=== PATIENT | female | born 1945 | race Caucasian/White ===

== ENCOUNTER → 2016-11-16 | Outpatient (CLI) | payer OTHER | LOC: ULTRA 12:57 | DX: R20.9 Unspecified disturbances of skin sensation (principal) ==

== ENCOUNTER → 2016-11-27 | Outpatient (CLI) | payer OTHER ==
[2016-11-27 09:19] LABS: CREATININE 0.8 mg/dL (0.6-1.0)
== END ==
LOC: CAT 07:58
PROVIDERS: Nurse Practitioner
DX: I73.9 Peripheral vascular disease, unspecified (principal); I77.1 Stricture of artery; K57.90 Diverticulosis of intestine, part unspecified, without perforation or abscess without bleeding

== ENCOUNTER → 2019-02-21 | Outpatient (CLI) | payer OTHER | LOC: CAT 07:44 | DX: I71.4 Abdominal aortic aneurysm, without rupture (principal); I73.9 Peripheral vascular disease, unspecified; N28.89 Other specified disorders of kidney and ureter; E78.5 Hyperlipidemia, unspecified; I10 Essential (primary) hypertension; K76.9 Liver disease, unspecified; N28.1 Cyst of kidney, acquired; K57.30 Diverticulosis of large intestine without perforation or abscess without bleeding ==

== ENCOUNTER 2019-03-16 12:00 | Observation (INO) | payer OTHER ==
[2019-03-16] VITALS (8 sets, daily range): BP systolic 114–152; BP diastolic 57–75
[~2019-03-16] VITALS: Ht 167.6 cm; Wt 69.9 kg
[2019-03-16 13:00] LABS: HEMATOCRIT 38.7 % (37.0-47.0); HEMOGLOBIN 13.1 gm/dL (12.0-15.0); MCH 32.6 pg (26.0-34.0); MCHC 33.8 g/dL (28.0-37.0); MCV 96.5 fL (80.0-100.0); RBC 4.01 mil/uL (4.20-5.00); RDW 13.3 % (10.5-14.5); WBC 5.7 thou/uL (4.0-11.0)
[2019-03-16 13:10] LABS: POTASSIUM 4.2 mmol/L (3.5-5.1)
--- NOTE | 2019-03-16 17:45 | NUR ---
PT CARE ASSUMED APPROX 1640 FROM [facility]. PT S/P STENT TO LLE AND CARDIAC CATH. [employer] STAFF HAD ORIGINALLY REPORTED TO CONSULT DR CARROLL FOR EVAL BUT SENDING RN SAID SHE WASN'T TOLD THIS AND FAMILY CONFIRMED THAT HE WAS GIVEN INFO AND TOLD THAT DR CARROLL'S OFFICE WOULD BE FOLLOWING UP WITH THE PT AFTER DISCHARGE. POST CATH VSS. PT DENIES PAIN AND SOA. GAIT UNASSESSED AT THIS TIME DUE TO POST PROCEDURE BEDREST. WILL ASSESS GAIT AFTER. RIGHT GROIN SITE C/D/I. NO DISTRESS NOTED.
[2019-03-17 00:50] VITALS: BP 148/64
[2019-03-17 04:55] VITALS: BP 122/50
--- NOTE | 2019-03-17 05:52 | NUR ---
[facility] 1900. PT/VITALS STABLE. DENIES ANY PAIN. UP AD FLYNN. RIGHT GROIN SITE CDI. ADEQUATE REST NOTED THROUGH NIGHT. SR ON MONITOR. ASSESSMENT CHARTED. PROGRESSING WELL WITH POC. PLAN IS POSSIBLE DISCHARGE TODAY AFTER ECHO DONE. PT WILL NEED TO SET APPT WITH DR CARROLL FOR POSSIBLE AAA SURGERY
[2019-03-17 06:08] LABS: HEMATOCRIT 35.3 % (37.0-47.0); HEMOGLOBIN 11.9 gm/dL (12.0-15.0); MCH 32.9 pg (26.0-34.0); MCHC 33.8 g/dL (28.0-37.0); MCV 97.3 fL (80.0-100.0); RBC 3.63 mil/uL (4.20-5.00); RDW 13.6 % (10.5-14.5); WBC 6.2 thou/uL (4.0-11.0)
[2019-03-17 06:12] LABS: CALCIUM 8.6 mg/dL (8.5-10.1); CREATININE 0.9 mg/dL (0.6-1.0); POTASSIUM 4.1 mmol/L (3.5-5.1)
--- NOTE | 2019-03-17 08:14 | EKG ---
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: FORD : 1945 Requested By: Beck Beck Order Number: [id number] MD: Neto Giles Measurements Intervals [place] Rate: 68 P: 46 MD: 135 QRS: 61 QRSD: 78 T: 50 QT: 418 QTc: 445 Interpretive Statements Ectopic atrial rhythm with occasional atrial premature complexes No previous ECG available for comparison Electronically Signed On 03-17-2019 8:14:46 CDT by Neto Giles [email or web address] <ELECTRONICALLY SIGNED> By: Neto Giles MD, [facility] 03/17/19 0814 0751 0751 Neto Giles MD, FACC /EPI
[2019-03-17] MEDS ORDERED: TRI-BUFFERED A325 M1 PO (08:30)
[2019-03-17] MEDS ORDERED: NORVASC5 MG PO (08:30)
[2019-03-17] MEDS ORDERED: LIPITOR40 MG PO (08:30)
[2019-03-17] MEDS ORDERED: CLOPIDOGREL75 MG PO (08:30)
--- NOTE | 2019-03-17 10:49 | 2DMMODE ---
[facility] [address] [place] [address] 2 D/M-MODE ECHOCARDIOGRAM Name: LEIGHTON HERNANDEZ Room #: 215-P [facility] IN ..#: [id number] Admission: 03/16/19 Attend Phys: Juan Rashid, Discharge: Date of : 49 Report #: [id number] THIS REPORT FOR: //name// APPROVED REPORT Study performed: 03/17/2019 09:07:44 EXAM: Comprehensive 2D, Doppler, and color-flow Echocardiogram Patient Location: Bedside Room #: [facility] Status: routine BSA: 1.79 HR: 63 bpm Rhythm: NSR Other Information Study Quality: Adequate Indications COPD CAD Hypertension/HDD 2D Dimensions RVDd: 29.22 mm IVSd: 12.86 (7-11mm) LVOT Diam: 18.17 (18-24mm) LVDd: 40.97 mm PWd: 12.71 (7-11mm) LVDs: 28.65 (25-40mm) Aortic Root: 29.23 mm IVC: 9.00 mm Volumes Left Atrial Volume (Systole) Single Plane 4CH: 50.32 mL Single Plane 2CH: 37.38 mL LA ESV Index: 26.00 mL/m2 Aortic Valve AoV Peak Jose.: 1.75 m/s AO Peak Gr.: 12.24 mmHg LVOT Max P.24 mmHg LVOT Max V: 1.25 m/s CONNOR Vmax: 1.85 cm2 Mitral Valve E/A Ratio: 1.0 [facility] [place] [address] 2 D/M-MODE ECHOCARDIOGRAM Name: LEIGHTON HERNANDEZ Room #: 215-P [facility] IN ..#: [id number] Admission: 03/16/19 Attend Phys: Juan Rashid, Discharge: Date of : 49 Report #: [id number] MV Decel. Time: 280.16 ms MV E Max Jose.: 0.97 m/s MV A Jose.: 0.97 m/s MV PHT: 81.25 ms IVRT: 89.97 ms Pulmonary Valve PV Peak Jose.: 0.92 m/s PV Peak Gr.: 3.42 mmHg Pulmonary Vein P Vein S: 0.78 m/s P Vein A: 0.35 m/s P Vein D: 0.46 m/s P Vein A Dur.: 138.4 msec P Vein S/D Ratio: 1.70 Tricuspid Valve TR Peak Jose.: 2.49 m/s RAP Estimate: 5.00 mmHg TR Peak Gr.: 24.78 mmHg PA Pressure: 30.00 mmHg Left Ventricle The left ventricle is normal size. There is normal LV segmental wall motion. Mild concentric left ventricular hypertrophy. The left ventricular systolic function is normal. The left ventricular ejection fraction is within the normal range. LVEF is 60-65%. Moderate diastolic dysfunction is present (pseudonormal filling). Right Ventricle The right ventricle is normal size. The right ventricular systolic function is normal. Atria The left atrium size is normal. The right atrium size is normal. Aortic Valve Aortic valve is mildly calcified. No aortic regurgitation is present. There is no aortic valvular stenosis. Mitral Valve The mitral valve is normal in structure. Mild mitral regurgitation. No evidence of mitral valve stenosis. Tricuspid Valve The tricuspid valve is normal in structure. Trace tricuspid regurgitation. PAP is estimated at 30 mmHg. [facility] [place] [address] 2 D/M-MODE ECHOCARDIOGRAM Name: LEIGHTON HERNANDEZ Room #: 215-P [facility] IN M.R.#: [id number] Admission: 03/16/19 Attend Phys: Juan Rashid, Discharge: Date of : 49 Report #: [id number] Pulmonic Valve The pulmonary valve is normal in structure. Trace pulmonic regurgitation. Great Vessels The aortic root is normal in size. IVC is normal in size and collapses >50% with inspiration. Pericardium There is no pericardial effusion. <Conclusion> The left ventricle is normal size. LVEF is 60-65%. Aortic valve is mildly calcified. The mitral valve is normal in structure. Mild mitral regurgitation. The tricuspid valve is normal in structure. Trace tricuspid regurgitation. PAP is estimated at 30 mmHg. The pulmonary valve is normal in structure. Trace pulmonic regurgitation. There is no pericardial effusion. <ELECTRONICALLY SIGNED> By: Nikolas Abebe MD 03/17/19 1049 1049 1049 Nikolas Abebe MD /INF
[2019-03-17 10:55] VITALS: BP 135/63
--- NOTE | 2019-03-17 11:30 | NUR ---
ASSUMED CARE OF PT AT SHIFT CHANGE. ASSESSMENT CHARTED. MEDS GIVEN PER JUL. PT ALERT AND ORIENTED, VSS, DENIES PAIN. O2 SATS WNL ON ROOM AIR. RIGHT GROIN SITE CDI, NO HEMATOMA. DENIES CHEST PAIN. DC ORDERS ACKNOWLEDGED AND IMPLEMENTED. DC PAPERWORK DISCUSSED WITH PT AND SPOUSE, COMMUNICATES UNDERSTANDING. IV REMOVED, TELE REMOVED. PT LEFT UNIT WITH ALL BELONGINGS PER VOLUNTEER TRANSPORT, ACCOMPANIED BY SPOUSE.
--- NOTE | 2019-03-22 22:56 | CATHLAB ---
[facility] [address] [place] [address] INVASIVE PROCEDURE REPORT Name: LEIGHTON HERNANDEZ Room #: 215-P [facility] IN [facility]#: [id number] Admission: 03/16/19 Attend Phys: Juan Rashid, Discharge: 03/17/19 Date of : 49 Report #: [id number] THIS REPORT FOR: //name// APPROVED REPORT Study performed: 03/16/2019 13:34:17 Patient Details Patient Status: Out-Patient Room #: The patient is a 73 year-old female Event Personnel Keya Maldonado RTR, CUSTOM CLOTHIER Monitor, Kalyn Guy RN RN, Bernard Sarah RTR AyazubKiran Gerald M.D. Indication Chest pain Procedure Narrative A SHEATH BRITE-TIP 6F X 11CM ([id number]) sheath was inserted into the RFA^. Coronary angiography was performed using coronary diagnostic catheters. The right coronary system was accessed and visualized with a 6FR JR 4 #[id number] catheter. The left coronary system was accessed and visualized with a TORQUE/L#[id number] catheter. This procedure was performed in IR LAB 4. Intraoperative Conscious Sedation Sedation start time: 1350 Case end Time: 1400 Fentanyl 200 mcg Versed 3 mg Fluoro Time: 23.10 minutes Dose: DAP 45236.10 cGycm2 3225 mGy Contrast Type and Amount: Visipaque 200 ml PCI Technique Lesion Percutaneous coronary intervention was performed on the Mid com femoral. PCI Technique Lesion 2 Percutaneous Coronary Intervention was performed on the External iliac. Conclusion #1 left main short mildly disease giving rise to LAD and [facility] [address] [place] [address] INVASIVE PROCEDURE REPORT Name: LEIGHTON HERNANDEZ Room #: 215-P [facility]#: [id number] Admission: 03/16/19 Attend Phys: Juan Rashid, Discharge: 03/17/19 Date of : 49 Report #: [id number] circumflex #2 LAD with proximal calcification mild proximal disease diffusely disease mid distal vessel no high-grade occlusive disease #3 dominant circumflex system with an eccentric 60-70% proximal mid vessel lesion proximal to bifurcation large OM and distal circumflex treat medically. #4 RCA appears to be relatively nondominant but may be distal portion of this vessel is occluded. Recommendations plan continue aggressive risk factor modification. We'll need close follow-up and possible stress testing looking for extent of ischemia in the inferior lateral wall in the dominant circumflex distribution. No indication for current intervention. <ELECTRONICALLY SIGNED> By: Beck Beck MD, [facility] 03/22/192254 54 [id number] Beck Beck MD, FACC /INF
--- NOTE | 2019-03-28 09:11 | HC ---
[facility] [place] [address] CONSULTATION Name: MAE HERNANDEZMalaika Streeter Room #: 215-P [facility] Nitesh Mcghee#: [id number] Admission: 03/16/19 Attend Phys: Juan Rashid MD Discharge: 03/17/19 Date of : 49 Report #: [id number] THIS REPORT FOR: //name// CC: Juan DIMAS MD DATE OF SERVICE: 03/16/2019 CARDIOLOGY CONSULT HISTORY OF PRESENT ILLNESS: The patient is a 73-year-old female who I am asked to see who is followed by [facility] and Dr. Dimas as well as Dr. Rashid. Dr. Rashid is evaluating her for a saccular abdominal aneurysm, which is significant in size. There is some history of some progressive dyspnea, shortness of breath, but no documented cardiac history, but a strong family history with a positive family history and a tobacco history. Still intermittent smoker, although trying to quit. She denies PND or orthopnea. She is not terribly active. So no definite acceleration of angina, but just some progressive dyspnea and decreased exercise tolerance. History of hypertension and hypercholesterolemia. She has been maintained on atorvastatin 40, amlodipine 5 and Plavix 75. No syncope or presyncope. There is also no known documented a saccular aneurysm noninvasively. Scheduled for angiography and possible coiling of the ARVIND, if it is patent today by Dr. Rashid. PAST MEDICAL HISTORY: Positive for hypertension, prior tobacco use, COPD, hypercholesterolemia and vertebral artery stenosis. 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 This was on the CT at [facility]. PAST SURGICAL HISTORY: Adenoidectomy and tonsillectomy. SOCIAL HISTORY: She has a significant other. Still intermittent tobacco user, although she did quit for a while, 3 months ago. She is retired. ALLERGIES: No known drug allergies. FAMILY HISTORY: Both parents have had CVAs. PHYSICAL EXAMINATION: VITAL SIGNS: Blood pressure was 114/70, pulse 70s. HEENT: Eyes reveal xanthelasmas. Pharynx is clear. NECK: Shows preserved upstrokes without JVD or bruits. LUNGS: Show prolonged expiratory phase.. [facility] [address] [place] [address] CONSULTATION Name: LEIGHTON HERNANDEZ Room #: 215-P [facility] M.R.#: [id number] Admission: 03/16/19 Attend Phys: Juan Rashid MD Discharge: 03/17/19 Date of : 49 Report #: [id number] CARDIOVASC ULAR: Regular rate and rhythm, S1, S2. ABDOMEN: Soft. There is a palpable abdominal aorta. EXTREMITIES: Reveal diminished pulses, but faintly palpable distally. NEUROLOGIC: Nonfocal. SKIN: Warm and dry without xanthoma or ulcer. MUSCULOSKELETAL: Generalized arthritic changes. ASSESSMENT: 1. A saccular abdominal aortic aneurysm approximately 4 cm. 2. Suspected coronary artery disease in light of some subtle accelerating anginal type symptoms. 3. Hypertension. 4. Hypercholesterolemia. 5. Chronic obstructive pulmonary disease with continued tobacco use. RECOMMENDATIONS AND PLAN: We will proceed with coronary angiography at the setting of Dr. Rashid's lower extremity and aortogram based on the fact that she presumably will need surgery for this saccular aortic aneurysm. Discussed with the patient, we will proceed with angiography and full report to follow. We will follow with you. Continue the hypertensive and hypercholesterolemia medicines. Smoking cessation will hopefully continue. Thank you for asking me to assist in the care of this patient. <ELECTRONICALLY SIGNED> By: Beck Beck MD, FACC 03/28/19 0911 1626 0504 Beck Beck MD, FACC /nt
--- NOTE | 2019-03-28 09:11 | D ---
[facility] [place] [address] DISCHARGE SUMMARY Name: LEIGHTON HERNANDEZ Syl Room #: 215-P [facility] Nitesh Mcghee#: [id number] Admission: 03/16/19 Attend Phys: Juan Rashid MD Discharge: 03/17/19 Date of : 49 Report #: [id number] THIS REPORT FOR: //name// CC: Juan Koenig MD [facility] SUMMARY: This is a 73-year-old female who was admitted for cardiovascular and further evaluation of a saccular aortic aneurysm. I was asked to evaluate her due to risk factors yesterday and subsequently went to the catheterization lab, which appeared to have a predominantly nondominant right coronary artery occluded and moderate disease in an LAD and circumflex artery with preserved LV function, but did not warrant coronary intervention. Dr. Rashid performed an ARVIND closure off of the aneurysm, a right SFA atherectomy, left external and common iliac stent. She is up and ambulating, doing well. She is being evaluated by CT surgery. She looks to be a good candidate for an aortic stent graft repair of the saccular aneurysm. She will be discharged to home on Plavix, Lipitor 40, amlodipine 5 and aspirin. Followup is with Dr. Montero and then arrangement of procedure/surgery with Dr. Montero and Dr. Rashid to repair this aneurysm. Coronary status is stable. I would want tight blood pressure, lipid control and smoking cessation. This has all been discussed with her and her significant other. No lifting for 48 hours. No lying in tub, Jacuzzi or roth for a week. DISCHARGE DIAGNOSES: 1. Moderate coronary artery disease with as stated above, preserved LV function. 2. Hypertension. 3. Hypercholesterolemia. 4. Tobacco use with mild chronic obstructive pulmonary disease. 5. Saccular abdominal aortic aneurysm, which will be scheduled for repair. 6. Peripheral vascular disease with intervention to right SFA and left iliac as stated above. Thank you for asking me to assist in the care of this patient. <ELECTRONICALLY SIGNED> By: Beck Beck MD, FACC 03/28/19 0911 0926 1027 Beck Beck MD, FACC /nt
[2019-03-28] MEDS ORDERED: NORVASC5 M1 PO (12:10)
[2019-03-28] MEDS ORDERED: ASPIRIN81 M2 PO (12:12)
[2019-03-28] MEDS ORDERED: LIPITOR40 MG PO (12:12)
[2019-03-28] MEDS ORDERED: PLAVIX 75 MG TA75 MG PO (12:13)
== END 2019-03-17 11:28 | disposition home or self-care (01) ==
LOC: CATH 12:00 → EROBS 15:02 → 2N 17:01 → ENTRNSPT 03-17 11:17 → EDTRNSPTSTS 03-17 11:25 → 2N 03-17 11:28
PROVIDERS: Nuclear Medicine Nuclear Cardiology; ADMIT Internal Medicine Cardiovascular Disease
DX: I25.10 Atherosclerotic heart disease of native coronary artery without angina pectoris (principal); I10 Essential (primary) hypertension; E78.00 Pure hypercholesterolemia, unspecified; J44.9 Chronic obstructive pulmonary disease, unspecified; I71.4 Abdominal aortic aneurysm, without rupture; I70.1 Atherosclerosis of renal artery; I70.202 Unspecified atherosclerosis of native arteries of extremities, left leg; E78.5 Hyperlipidemia, unspecified; I65.09 Occlusion and stenosis of unspecified vertebral artery; H54.3 Unqualified visual loss, both eyes; Z79.899 Other long term (current) drug therapy; Z87.891 Personal history of nicotine dependence

== ENCOUNTER 2019-04-05 08:00 | Inpatient (IN) | payer OTHER ==
[2019-03-30 09:21] LABS: ABSOLUTE NEUTROPHILS 4.1 thou/uL (1.4-8.2); BASOPHILS 0.4 % (0.0-2.0); EOSINOPHILS 0.5 % (0.0-3.0); HEMATOCRIT 39.2 % (37.0-47.0); HEMOGLOBIN 13.1 gm/dL (12.0-15.0); LYMPHOCYTES 16.5 % (24.0-44.0); MCH 32.5 pg (26.0-34.0); MCHC 33.5 g/dL (28.0-37.0); MCV 97.1 fL (80.0-100.0); MONOCYTES 5.5 % (1.0-8.0); PLATELET COUNT 211 thou/uL (150-400); POLYS 77.1 % (36.0-66.0); RBC 4.03 mil/uL (4.20-5.00); RDW 13.3 % (10.5-14.5); WBC 5.4 thou/uL (4.0-11.0)
[2019-03-30 09:36] LABS: APTT 30.3 Seconds (24.5-32.8); PROTIME 10.3 Seconds (9.3-11.4)
[2019-03-30 09:45] LABS: ALBUMIN 3.8 g/dL (3.4-5.0); CREATININE 0.9 mg/dL (0.6-1.0); POTASSIUM 3.6 mmol/L (3.5-5.1); TOTAL BILIRUBIN 0.5 mg/dL (<0.1-1.0); TOTAL PROTEIN 7.4 g/dL (6.4-8.2); URINE BILIRUBIN NEGATIVE (Negative); URINE BLOOD TRACE (Negative); URINE CLARITY CLEAR; URINE COLOR YELLOW; URINE GLUCOSE-RANDOM* NEGATIVE (Negative); URINE KETONES NEGATIVE (Negative); URINE LEUKOCYTES-REFLEX TRACE (Negative); URINE NITRITE-REFLEX NEGATIVE (Negative); URINE PROTEIN (DIPSTICK) NEGATIVE (Negative); URINE UROBILINOGEN 0.2 E.U./dl (0.2-1.0)
[~2019-04-05] VITALS: Ht 167.6 cm; Wt 68.8 kg
[2019-04-05] VITALS (15 sets, daily range): BP systolic 114–135; BP diastolic 46–74
[~2019-04-05 08:00] MED LIST: ASPIRIN81 M2 PO; CLOPIDOGREL75 MG PO; LIPITOR40 MG PO; NORVASC5 M1 PO; NORVASC5 MG PO; PLAVIX 75 MG TA75 MG PO; TRI-BUFFERED A325 M1 PO
--- NOTE | 2019-04-05 13:25 | NUR ---
THIS INFORMAL WAITER/WAITRESS COMPLETED A PRE-SURGERY VISIT TO THE PATIENT AND S/O. THEY WERE APRECIATIVE AND VERY GRACIOUS.
--- NOTE | 2019-04-05 20:13 | NUR ---
PATIENT ADMITTED TO ICU ROOM 245 VIA BED FROM PACU AT 1735. MINE ENGINEERING SUPERVISOR ATTACHED SHOWING NSR. PULSE OX SHOWING O2 SAT IN THE MID 90'S ON ROOM AIR PHYLLIS IN RT RADIAL ARTERY ZEROED AND SL HIGHER THAN CUFF, WITHIN DESIRED PARAMATERS. LEFT GROIN DRESSING DRY AND INTACT, SOFT. RIGHT GROIN DRESSING SCANT AMT OF BLOODY DRAINAGE WITH FIRMER AREA NOTED. RT DORSALIS PULSE 1+ AND LEFT IS 2+, FEET ARE WARM, CAP REFILL LESS THAN 3 SEC AND GOOD SENSATION. REFUSES DIET AT THIS TIME, STATED THAT SHE WAS NOT HUNGERY. FENTANYL GIVEN FOR GENERALIZED GROIN PAIN, VALADEZ CATH NOTED WITH LT YELLOW URINE NOTED.
[2019-04-06] VITALS (14 sets, daily range): BP systolic 90–123; BP diastolic 34–52
--- NOTE | 2019-04-06 04:25 | NUR ---
AOX4. ON RA, NO SIGNS OF DISTRESS WHILE AT REST. MEDICATED FOR PAIN RELIEF. AFEBRILE. BILATERAL GROIN SITES DRESSING INTACT. RIGHT GRION INCISION IS FIRM, NO BLEED NOTED DURING ASSESSMENTS. VSS. WILL CONTINUE TO MONITOR.
[2019-04-06 05:25] LABS: HEMATOCRIT 32.6 % (37.0-47.0); MCH 32.4 pg (26.0-34.0); MCHC 33.7 g/dL (28.0-37.0); MCV 96.3 fL (80.0-100.0); RBC 3.38 mil/uL (4.20-5.00); RDW 13.3 % (10.5-14.5); WBC 11.1 thou/uL (4.0-11.0)
[2019-04-06 05:26] LABS: CALCIUM 8.7 mg/dL (8.5-10.1); CREATININE 0.8 mg/dL (0.6-1.0); POTASSIUM 3.5 mmol/L (3.5-5.1)
--- NOTE | 2019-04-06 14:27 | NUR ---
PATIENT DISCHARGED TO HOME WITH VIA W/C ACCOMPANIED BY HOSPITAL VOLENTEER. REVIEWED DISCHARGE INSTRUCTION WITH PATIENT AND , VERBALIZED UNDERSTANDING. UP IN THE ROOM WITHOUT DISTRESS WITH PAIN CONTROLLED. PATIENT DISCHARGED AT 1400 TODAY
--- NOTE | 2019-04-07 12:21 | O ---
[facility] [place] [address] OPERATIVE REPORT Name: LEIGHTON HERNANDEZ Room #: 245-P [facility] IN M.R.#: [id number] Admission: 04/05/19 Attend Phys: Jamar Montero MD Discharge: 04/06/19 Date of : 49 Report #: [id number] THIS REPORT FOR: //name// CC: Jamar Claros DATE OF SERVICE: 04/05/2019 PREOPERATIVE DIAGNOSIS: Abdominal aortic aneurysm. POSTOPERATIVE DIAGNOSIS: Abdominal aortic aneurysm. OPERATION: Stent graft implant for infrarenal abdominal aortic aneurysm with arteriography. SURGEON: Dr. Jamar Montero and Dr. Juan Rashid. BANK VAULT CLERK: RADHA Vazquez. ANESTHESIA: General. INDICATIONS: The patient is a 73-year-old with a saccular infrarenal abdominal aortic aneurysm. The patient has peripheral arterial occlusive disease and has had iliac stents placed in the past. FINDINGS AND TECHNIQUE: After general anesthesia was established, incisions were made in each groin to expose the common deep and superficial femoral artery on the right side. This was difficult as there was a previous closure device that was involved in a relatively high position crossing the inguinal ligament. 10,000 units of heparin were given on each side. The artery was entered with an Amplatz needle followed by guidewire and 6-Bahamian sheath. Through this 6-Bahamian sheath, a J-wire was passed and an exchanged catheter was used to place a Lunderquist wire. Through a cutdown on the left side, we placed a 12-Bahamian sheath and on the right side, the 16-Bahamian sheath. A main component was delivered through the large sheath on the right side. A 23 x 12 x 12 main component was placed in the aorta. This was positioned using the lower accessory right renal artery as a guide. This was entered through the left side initially with a visceral catheter followed by a Storq wire and selective catheter. When we had deployed the main component satisfactorily, the contralateral limb was entered through the left side and then retrograde arteriogram was taken. [facility] [address] [place] [address] OPERATIVE REPORT Name: LEIGHTON HERNANDEZ Room #: 245-P [facility] IN ..#: [id number] Admission: 04/05/19 Attend Phys: Jamar Montero MD Discharge: 04/06/19 Date of : 49 Report #: [id number] It should be noted that the graft was relatively tight fit in the aorta and the spin technique was only partially successful, but careful examination from all views allowed us to determine that the gate was indeed cannulated. A retrograde iliac shot was taken on the left side to pinpoint the origin of the hypogastric artery and using this as a guide, a 12 x 12 contralateral limb was used. This was deployed high in the gate and placed to fit properly above the hypogastric takeoff. At this point, the right iliac limb was completed of the main component and now with all components deployed, the compliant balloon was used to fully distend the graft at the landing zone proximally and then the contralateral gate and throughout the contralateral limb. We also used two 8 mm balloons at the bifurcation and an area where it looked like there might be some competition for room. A final arteriogram was taken to show us the position of the graft. In general, we were satisfied with the position, but there appeared to be a small type 1 leak proximally and there was also a narrow area in the iliac limb of the main component. At this point, a decision was made to place a 23 x 3.3 aortic cuff to fully iron out any pleats in the proximal device. This was deployed using the previous graft as a marker and then the noncompliant balloon was used to fully deploy the cuff. We also used a 12 mm balloon to fully dilate the iliac limb using the compliant balloon as a complimentary dilating balloon. With all of the devices, now fully deployed a final arteriogram was taken. This showed no evidence of leak and good position of all grafts. Satisfied with this, the dilators were replaced into the sheaths, the sheaths were removed and then the guidewires were removed on each side. The femoral cutdown was repaired with interrupted Prolene. Protamine was given to reverse the heparin. Hemostasis was satisfactory and the wounds were closed in layers. The patient was taken to the recovery area in good condition with good distal arterial flow. All counts were reported as correct. <ELECTRONICALLY SIGNED> By: Jamar Montero MD 04/07/19 1221 0724 0752 Jamar Montero MD /nt
== END 2019-04-06 13:50 | disposition home or self-care (01) | DRG 269 ==
LOC: PRE 08:00 → TBA 10:21 → ICU 10:21 → PRE 11:17 → ICU 17:37
PROVIDERS: Physician Assistant; ADMIT Surgery Vascular Surgery
PROC: B4181ZZ Fluoroscopy of Bilateral Renal Arteries using Low Osmolar Contrast (ICD-10-PCS; principal; 2019-04-05)
PROC: 04V03DZ Restriction of Abdominal Aorta with Intraluminal Device, Percutaneous Approach (ICD-10-PCS; principal; 2019-04-05)
DX: I71.4 Abdominal aortic aneurysm, without rupture (principal); E78.00 Pure hypercholesterolemia, unspecified; I10 Essential (primary) hypertension; I73.9 Peripheral vascular disease, unspecified; Z79.82 Long term (current) use of aspirin; Z79.899 Other long term (current) drug therapy; Z86.73 Personal history of transient ischemic attack (TIA), and cerebral infarction without residual deficits
CPT/HCPCS: 10078; 47375; 48888; 50010; 50101; 50386; 50455; 51078; 51751; 54118; 56524; 56526; 56531; 56534; 56668; 56760; 57093; 62110; 62900; 65020; 65040; 70005

== ENCOUNTER → 2019-05-16 | Outpatient (CLI) | payer OTHER | LOC: CAT 13:46 | PROVIDERS: Nuclear Medicine Nuclear Cardiology | DX: N28.1 Cyst of kidney, acquired (principal); I71.4 Abdominal aortic aneurysm, without rupture; M43.16 Spondylolisthesis, lumbar region; M47.816 Spondylosis without myelopathy or radiculopathy, lumbar region; K76.89 Other specified diseases of liver; Z95.828 Presence of other vascular implants and grafts; Z98.890 Other specified postprocedural states ==

== ENCOUNTER → 2019-06-06 | Outpatient (CLI) | payer OTHER | LOC: SJCVC 11:34 | DX: I71.4 Abdominal aortic aneurysm, without rupture (principal); I10 Essential (primary) hypertension; I25.10 Atherosclerotic heart disease of native coronary artery without angina pectoris; I73.9 Peripheral vascular disease, unspecified; E78.00 Pure hypercholesterolemia, unspecified; N28.89 Other specified disorders of kidney and ureter; Z79.82 Long term (current) use of aspirin; Z79.899 Other long term (current) drug therapy ==

== ENCOUNTER → 2019-12-21 | Outpatient (CLI) | payer OTHER | LOC: SJCVCIMAG 07:59 | PROVIDERS: ATTEND Internal Medicine Cardiovascular Disease | DX: I65.23 Occlusion and stenosis of bilateral carotid arteries (principal); I73.9 Peripheral vascular disease, unspecified; R94.31 Abnormal electrocardiogram [ECG] [EKG]; I25.10 Atherosclerotic heart disease of native coronary artery without angina pectoris; I71.4 Abdominal aortic aneurysm, without rupture; I10 Essential (primary) hypertension; E78.00 Pure hypercholesterolemia, unspecified; N28.89 Other specified disorders of kidney and ureter; Z79.899 Other long term (current) drug therapy; Z87.891 Personal history of nicotine dependence ==

== ENCOUNTER → 2019-12-22 | Outpatient (CLI) | payer OTHER | LOC: CAT 12:46 | PROVIDERS: ATTEND Nuclear Medicine Nuclear Cardiology | DX: Z01.812 Encounter for preprocedural laboratory examination (principal); I71.4 Abdominal aortic aneurysm, without rupture; N28.89 Other specified disorders of kidney and ureter; E27.9 Disorder of adrenal gland, unspecified; K76.89 Other specified diseases of liver ==

== ENCOUNTER → 2020-08-20 | Outpatient (CLI) | payer OTHER | LOC: SJCVCIMAG | PROVIDERS: ATTEND Nuclear Medicine Nuclear Cardiology | DX: R94.31 Abnormal electrocardiogram [ECG] [EKG] (principal); I70.203 Unspecified atherosclerosis of native arteries of extremities, bilateral legs; E78.00 Pure hypercholesterolemia, unspecified; I65.23 Occlusion and stenosis of bilateral carotid arteries; R06.09 Other forms of dyspnea; I10 Essential (primary) hypertension; I25.10 Atherosclerotic heart disease of native coronary artery without angina pectoris; I77.9 Disorder of arteries and arterioles, unspecified; I71.4 Abdominal aortic aneurysm, without rupture; R06.00 Dyspnea, unspecified; R68.89 Other general symptoms and signs; M79.661 Pain in right lower leg; M79.662 Pain in left lower leg; Z79.899 Other long term (current) drug therapy; Z87.891 Personal history of nicotine dependence; Z72.89 Other problems related to lifestyle ==

== ENCOUNTER → 2020-08-30 | Outpatient (CLI) | payer OTHER | LOC: SJCVCIMAG 08:16 | PROVIDERS: ATTEND Nuclear Medicine Nuclear Cardiology | DX: R06.00 Dyspnea, unspecified (principal); I25.10 Atherosclerotic heart disease of native coronary artery without angina pectoris; I71.4 Abdominal aortic aneurysm, without rupture; E78.5 Hyperlipidemia, unspecified; I10 Essential (primary) hypertension; I73.9 Peripheral vascular disease, unspecified; F17.200 Nicotine dependence, unspecified, uncomplicated; Z79.82 Long term (current) use of aspirin; Z86.73 Personal history of transient ischemic attack (TIA), and cerebral infarction without residual deficits; Z79.899 Other long term (current) drug therapy; Z95.818 Presence of other cardiac implants and grafts ==

== ENCOUNTER → 2021-02-10 | Outpatient (CLI) | payer OTHER ==
[2021-02-10 10:04] LABS: CREATININE 1.1 mg/dL (0.6-1.0)
== END ==
LOC: CAT 08:59
PROVIDERS: ATTEND Nuclear Medicine Nuclear Cardiology
DX: I71.4 Abdominal aortic aneurysm, without rupture (principal); N28.9 Disorder of kidney and ureter, unspecified; K76.89 Other specified diseases of liver; I25.10 Atherosclerotic heart disease of native coronary artery without angina pectoris; I77.1 Stricture of artery; I70.8 Atherosclerosis of other arteries

== ENCOUNTER → 2021-02-26 | Outpatient (CLI) | payer OTHER | LOC: SJCVCIMAG 07:36 | PROVIDERS: ATTEND Internal Medicine Cardiovascular Disease | DX: R94.31 Abnormal electrocardiogram [ECG] [EKG] (principal); I70.203 Unspecified atherosclerosis of native arteries of extremities, bilateral legs; I25.10 Atherosclerotic heart disease of native coronary artery without angina pectoris; N28.89 Other specified disorders of kidney and ureter; I77.9 Disorder of arteries and arterioles, unspecified; I71.4 Abdominal aortic aneurysm, without rupture; E78.00 Pure hypercholesterolemia, unspecified; I10 Essential (primary) hypertension; I25.2 Old myocardial infarction; F17.200 Nicotine dependence, unspecified, uncomplicated; Z95.828 Presence of other vascular implants and grafts; Z72.89 Other problems related to lifestyle; Z79.82 Long term (current) use of aspirin; Z79.899 Other long term (current) drug therapy ==